=== PATIENT | male | born 1950 | race Caucasian/White ===

== ENCOUNTER 2018-10-04 09:49 | Emergency (ER) | payer MEDICARE, MEDICAID ==
[~2018-10-04] VITALS: Ht 175.3 cm; Wt 96.4 kg
[~2018-10-04 09:49] MED LIST: NAP220T PO; NO HOME MEDS
[2018-10-04] MEDS ORDERED: ipratropium/albuterol 3ml nebule NEB ONE (10:40)
[2018-10-04] MEDS ORDERED: dexamethasone 4mg tablet PO ONE (10:40)
[2018-10-04 11:09] LABS: BASOPHILS % (AUTO) 0.4 % (0-1); EOSINOPHILS # (AUTO) 0.4 X10'3 (0-0.9); EOSINOPHILS % (AUTO) 3.2 % (0-6); HEMATOCRIT 46.2 % (42.0-52.0); HEMOGLOBIN 15.8 g/dl (14.0-17.9); LYMPHOCYTES # (AUTO) 1.9 X10'3 (1.1-4.8); LYMPHOCYTES % (AUTO) 16.9 % (21-51); MEAN CORPUSCULAR HEMOGLOBIN 30.6 PG (27.0-31.0); MEAN CORPUSCULAR HGB CONC 34.1 % (33.0-36.5); MEAN CORPUSCULAR VOLUME 89.8 FL (78-98); MEAN PLATELET VOLUME 8.1 FL (7.4-10.4); MONOCYTES # (AUTO) 1.1 X10'3 (0-0.9); MONOCYTES % (AUTO) 9.4 % (2-12); NEUTROPHILS # (AUTO) 7.9 X10'3 (1.8-7.7); NEUTROPHILS % (AUTO) 70.1 % (42-75); PLATELET COUNT 270 X10'3 (140-440); RED BLOOD COUNT 5.15 X10'6 (4.70-6.10); RED CELL DISTRIBUTION WIDTH 12.5 % (11.5-14.5); WHITE BLOOD COUNT 11.3 X10'3 (4.5-11.0)
[2018-10-04 11:35] LABS: ALANINE AMINOTRANSFERASE 40 U/L (12-78); ALBUMIN 3.1 G/DL (3.4-5.0); ALBUMIN/GLOBULIN RATIO 0.7 (1.1-1.5); ALKALINE PHOSPHATASE 123 IU/L (46-116); ANION GAP 9 (8-16); ASPARTATE AMINO TRANSFERASE 22 U/L (10-37); BILIRUBIN,TOTAL 0.6 MG/DL (0.1-1.0); BLOOD UREA NITROGEN 9 MG/DL (7-18); BUN/CREATININE RATIO 10.2 (5.4-32.0); CHLORIDE 99 MMOL/L (99-107); CREATININE 0.88 MG/DL (0.60-1.10); GLUCOSE 105 MG/DL (70-104); POTASSIUM 4.1 MMOL/L (3.5-5.1); SODIUM 135 MMOL/L (135-145); TOTAL CARBON DIOXIDE 27.1 MMOL/L (24-32); TOTAL PROTEIN 7.8 G/DL (6.4-8.2); eGFR 86 ML/MIN
[2018-10-04] MEDS ORDERED: PRED20TA PO (12:02)
[2018-10-04] MEDS ORDERED: ALBU8HFA PO (12:02)
[2018-10-04] MEDS ORDERED: DOXY100C43 PO (12:02)
[2018-10-04 12:26] VITALS: BP 125/83
== END 2018-10-04 12:28 | disposition home or self-care (01) ==
LOC: ER 09:50
DX: S05.12XA Contusion of eyeball and orbital tissues, left eye, initial encounter (principal); J20.9 Acute bronchitis, unspecified; H11.32 Conjunctival hemorrhage, left eye; E78.00 Pure hypercholesterolemia, unspecified; I10 Essential (primary) hypertension; F12.90 Cannabis use, unspecified, uncomplicated; Z98.890 Other specified postprocedural states; Z79.899 Other long term (current) drug therapy; X58.XXXA Exposure to other specified factors, initial encounter; Y93.89 Activity, other specified; Y92.89 Other specified places as the place of occurrence of the external cause; Y99.8 Other external cause status
CPT/HCPCS: 36415; 71046; 80053; 83605; 83880; 84484; 85025; 87040; 87070; 87077; 87185; 93005; 94640; 94760; 99285; J8540

== ENCOUNTER 2020-12-13 00:13 | Observation (INO) | payer MEDICAID, MEDICARE ==
[2020-12-13] VITALS (25 sets, daily range): BP systolic 114–140; BP diastolic 61–83
[~2020-12-13] VITALS: Ht 175.3 cm; Wt 96.0 kg
[2020-12-13] MEDS ORDERED: morphine 4 MG/ML inj SYRINge IV ONE (00:30)
[2020-12-13] MEDS ORDERED: ondansetron/PF 4mg/2ml inj IV ONE (00:35)
[2020-12-13] MEDS ORDERED: PROC-8 PO (01:24)
[2020-12-13 01:25] LABS: ALANINE AMINOTRANSFERASE 19 U/L (12-78); ALBUMIN 3.4 G/DL (3.4-5.0); ALBUMIN/GLOBULIN RATIO 0.9 (1.1-1.5); ALKALINE PHOSPHATASE 80 IU/L (46-116); ANION GAP 6 (8-16); ASPARTATE AMINO TRANSFERASE 12 U/L (10-37); BILIRUBIN,TOTAL 0.6 MG/DL (0.1-1.0); BLOOD UREA NITROGEN 14 MG/DL (7-18); BUN/CREATININE RATIO 14.4 (5.4-32.0); CALCIUM 8.4 MG/DL (8.5-10.1); CHLORIDE 100 MMOL/L (99-107); CREATININE 0.97 MG/DL (0.60-1.10); GLUCOSE 114 MG/DL (70-104); LIPASE < 50 U/L (73-393); POTASSIUM 3.6 MMOL/L (3.5-5.1); SODIUM 135 MMOL/L (135-145); TOTAL CARBON DIOXIDE 28.6 MMOL/L (24-32); TOTAL PROTEIN 7.2 G/DL (6.4-8.2); eGFR 77 ML/MIN
[2020-12-13 01:36] LABS: BASOPHILS % (AUTO) 0.3 % (0-1); EOSINOPHILS # (AUTO) 0.1 X10'3 (0-0.9); EOSINOPHILS % (AUTO) 0.5 % (0-6); HEMATOCRIT 44.3 % (42.0-52.0); HEMOGLOBIN 15.2 g/dl (14.0-17.9); LYMPHOCYTES # (AUTO) 1.5 X10'3 (1.1-4.8); LYMPHOCYTES % (AUTO) 9.6 % (21-51); MEAN CORPUSCULAR HEMOGLOBIN 31.5 PG (27.0-31.0); MEAN CORPUSCULAR HGB CONC 34.4 g/dL (33.0-36.5); MEAN CORPUSCULAR VOLUME 91.7 FL (78-98); MEAN PLATELET VOLUME 9.2 FL (7.4-10.4); MONOCYTES # (AUTO) 1.6 X10'3 (0-0.9); MONOCYTES % (AUTO) 10.6 % (2-12); NEUTROPHILS # (AUTO) 12.1 X10'3 (1.8-7.7); PLATELET COUNT 202 X10'3 (140-440); RED BLOOD COUNT 4.83 X10'6 (4.70-6.10); RED CELL DISTRIBUTION WIDTH 13.3 % (11.5-14.5); WHITE BLOOD COUNT 15.3 X10'3 (4.5-11.0)
[2020-12-13] MEDS ORDERED: iohexol 300mg/ml 100ml inj. ONE (01:45)
[2020-12-13] MEDS ORDERED: normal saline 1000ml 1,000 ML IV ONE (02:25)
[2020-12-13] MEDS ORDERED: magnesium 4gm in 100ml NS 100 ML IV PRN (02:35)
[2020-12-13] MEDS ORDERED: morphine 2 MG/ML inj. syringe IV PRN ×2 (02:35→06:15)
[2020-12-13] MEDS ORDERED: magnesium Cl slow-release 64mg tablet PO PRN (02:35)
[2020-12-13] MEDS ORDERED: ondansetron/PF 4mg/2ml inj IV PRN ×3 (02:35→08:05)
[2020-12-13] MEDS: normal saline 1000ml 1,000 ML IV SCH ×3 (02:35→18:40)
[2020-12-13] MEDS ORDERED: acetaminophen 325mg tablet PO PRN (02:35)
[2020-12-13] MEDS ORDERED: magnesium 2GM in 50ml NS 50 ML IV PRN (02:35)
[2020-12-13] MEDS ORDERED: potassium Cl 20 mEq SR tablet PO PRN ×2 (02:35)
[2020-12-13] MEDS ORDERED: potassium Cl 40MEQ/1/2NS 520ml 520 ML IV PRN ×2 (02:35)
--- NOTE | 2020-12-13 02:41 | NUR ---
Assumed care of pt who states if he holds still his pain is 3/10 RLQ and if he moves it's 10/10 sharp pain. No other complaints at this time.
[2020-12-13] MEDS ORDERED: piperacillin/tazo 4.5gm/100ml 100 ML IV SCH (02:51)
--- NOTE | 2020-12-13 03:29 | NUR ---
Attempting to do Med Rec for pt but Dr. Dwyer has it locked at this time.
[2020-12-13] MEDS ORDERED: HYDR12.55 PO ×2 (04:47→11:21)
[2020-12-13] MEDS ORDERED: ROSU20TA2 PO ×2 (04:47→11:21)
[2020-12-13] MEDS ORDERED: LOSA25TA96 PO (04:47)
[2020-12-13] MEDS ORDERED: BUPIVAcaine/PF 2.5 mg/ml (0.25%) 30ml vial ONE (06:12)
[2020-12-13] MEDS ORDERED: LIDOcaine 1% 30ml preserv. free vial ONE (06:12)
[2020-12-13] MEDS ORDERED: proCHLORperazine 10 MG/2 ml inj IV PRN (06:15)
[2020-12-13] MEDS ORDERED: meperidine/PF 25mg/ml syringe IV PRN ×3 (06:15)
[2020-12-13] MEDS ORDERED: morphine 4 MG/ML inj SYRINge IV PRN (06:15)
--- NOTE | 2020-12-13 06:15 | NUR ---
Patient in room [facility]. I have received report from Akhil Castillo and had the opportunity to ask questions and assume patient care.
[2020-12-13] MEDS: ringers solution, lacted 1,000 ML IV SCH ×2 (06:50→06:58)
--- NOTE | 2020-12-13 07:02 | NUR ---
Problems reprioritized. Patient report given, questions answered & plan of care reviewed with LATESHA. Addendum: 12/13/20 at 0702 by Angel Perez RN Amended: Links added.
[2020-12-13] MEDS ORDERED: sevoflurane 250ml liquid IH ONE (07:06)
[2020-12-13] MEDS ORDERED: fentaNYL/PF 50MCG/1 ML 2ML syringe ONE (07:08)
[2020-12-13] MEDS ORDERED: propofol inj 20 ML IV ONE (07:08)
[2020-12-13] MEDS ORDERED: midazolam 2 mg/2 ml injection ONE (07:08)
[2020-12-13] MEDS ORDERED: rocuronium 10mg/ml inj IV ONE (07:10)
--- NOTE | 2020-12-13 07:15 | NUR ---
Called report to recovery, patient taken down to the OR.
[2020-12-13] MEDS: docusate sod 100mg capsule PO SCH ×2 (07:37→19:37)
[2020-12-13] MEDS ORDERED: glycopyrrolate 0.2mg/ml inj ONE (07:53)
[2020-12-13] MEDS ORDERED: neostigmine methylsulfate 1 MG/ML 10ml vial ONE (07:53)
[2020-12-13] MEDS: CefTRIAXone/D5W-Rocephin 1gm 50 ML IV SCH (08:00)
[2020-12-13] MEDS: K and/or MAG REPLACEMENT MC SCH ×2 (08:00→19:38)
[2020-12-13] MEDS ORDERED: HYDROcodone/acetaminophen 5mg/325mg tablet PO PRN (08:05)
--- NOTE | 2020-12-13 08:08 | NUR ---
Received from OR via BED, accompanied by Anesthesiologist DR MADRIGAL and report given by Anesthesiologist. PT DROWSY, DENIES PAIN, ABDOMEN W/3 LAP SITES W/BANDAIDS CDI. Addendum: 12/13/20 at 0832 by Italia Rivers RN Amended: Links added.
--- NOTE | 2020-12-13 10:08 | NUR ---
Report called to receiving nurse. Transferred BY [facility] via BED, NO Belongings, RECEIVING NOTIFIED OF PTS ARRIVAL. Special Issues communicated to receiving nurse. YES. Addendum: 12/13/20 at 1028 by tIalia Rivers RN Amended: Links added.
[2020-12-13] MEDS ORDERED: LOSA50TA64 PO (11:21)
[2020-12-13] MEDS: HYDROcodone/acetaminophen 10/325mg tab PO PRN ×2 (14:56→19:37)
[2020-12-13] MEDS: lactobacillus rhamnosus 10,000 MMU CELLS/CAPSULE PO SCH (19:38)
[2020-12-13] MEDS ORDERED: atorvastatin 20mg tablet PO SCH (21:00)
[2020-12-14] VITALS: BP 128/70
[2020-12-14] MEDS: normal saline 1000ml 1,000 ML IV SCH (04:54)
[2020-12-14 05:00] VITALS: BP 125/66
[2020-12-14] MEDS: HYDROcodone/acetaminophen 10/325mg tab PO PRN (05:22)
[2020-12-14 06:35] LABS: BASOPHILS # (AUTO) 0.1 X10'3 (0-0.2); BASOPHILS % (AUTO) 0.6 % (0-1); EOSINOPHILS # (AUTO) 0.1 X10'3 (0-0.9); EOSINOPHILS % (AUTO) 0.8 % (0-6); HEMOGLOBIN 14.2 g/dl (14.0-17.9); LYMPHOCYTES # (AUTO) 1.9 X10'3 (1.1-4.8); LYMPHOCYTES % (AUTO) 15.4 % (21-51); MEAN CORPUSCULAR HEMOGLOBIN 31.5 PG (27.0-31.0); MEAN CORPUSCULAR HGB CONC 33.7 g/dL (33.0-36.5); MEAN CORPUSCULAR VOLUME 93.7 FL (78-98); MONOCYTES # (AUTO) 1.4 X10'3 (0-0.9); MONOCYTES % (AUTO) 11.4 % (2-12); NEUTROPHILS # (AUTO) 8.7 X10'3 (1.8-7.7); NEUTROPHILS % (AUTO) 71.8 % (42-75); PLATELET COUNT 171 X10'3 (140-440); RED BLOOD COUNT 4.49 X10'6 (4.70-6.10); RED CELL DISTRIBUTION WIDTH 13.6 % (11.5-14.5); WHITE BLOOD COUNT 12.1 X10'3 (4.5-11.0)
[2020-12-14 06:44] LABS: ALBUMIN 2.8 G/DL (3.4-5.0); ANION GAP 8 (8-16); BLOOD UREA NITROGEN 11 MG/DL (7-18); BUN/CREATININE RATIO 11.3 (5.4-32.0); CHLORIDE 102 MMOL/L (99-107); CREATININE 0.97 MG/DL (0.60-1.10); GLUCOSE 120 MG/DL (70-104); MAGNESIUM 1.9 MG/DL (1.5-2.4); POTASSIUM 3.6 MMOL/L (3.5-5.1); SODIUM 137 MMOL/L (135-145); TOTAL CARBON DIOXIDE 27.3 MMOL/L (24-32); eGFR 77 ML/MIN
[2020-12-14 07:00] VITALS: BP 128/66
[2020-12-14 07:32] VITALS: BP_SYST 128
[2020-12-14] MEDS: docusate sod 100mg capsule PO SCH (07:32)
[2020-12-14] MEDS: CefTRIAXone/D5W-Rocephin 1gm 50 ML IV SCH (07:32)
[2020-12-14] MEDS: lactobacillus rhamnosus 10,000 MMU CELLS/CAPSULE PO SCH (07:32)
[2020-12-14] MEDS: K and/or MAG REPLACEMENT MC SCH (08:00)
[2020-12-14] MEDS ORDERED: HYDROchlorothiazide 12.5mg capsule PO SCH (08:00)
[2020-12-14] MEDS ORDERED: losartan 50mg tablet PO SCH (08:00)
[2020-12-14] MEDS ORDERED: LACT1CAP26 PO (09:58)
--- NOTE | 2020-12-14 10:45 | NUR ---
Discharge instructions given to patient, patient verbalized understanding of all instructions made. Peripheral IV catheter removed, tip intact. Instructed patient to ensure he has all his belongings with him before leaving the hospital. Awaiting for his to pick him up
== END 2020-12-14 11:05 | disposition home or self-care (01) ==
LOC: ER 00:14 → ED HOLD 02:45 → SUR 3N 03:47
PROVIDERS: ADMIT Internal Medicine; ATTEND Family Medicine
DX: K35.80 Unspecified acute appendicitis (principal); Z20.828 Contact with and (suspected) exposure to other viral communicable diseases; K42.0 Umbilical hernia with obstruction, without gangrene; D72.829 Elevated white blood cell count, unspecified; E78.00 Pure hypercholesterolemia, unspecified; I10 Essential (primary) hypertension; E78.5 Hyperlipidemia, unspecified; J43.9 Emphysema, unspecified; F12.90 Cannabis use, unspecified, uncomplicated; Z79.899 Other long term (current) drug therapy
CPT/HCPCS: 36415; 44970; 49587; 71045; 74177; 76937; 80048; 80053; 82948; 83690; 83735; 85025; 87081; 87635; 93005; 96361; 96365; 96367; 96375; 99285; G0378; J0696; J2001; J2175; J2250; J2270; J2405; J2543; J2704; J2710; J3010; J3490; J7030; J7120; Q9967; 88304; A4215; A4618; A7000